=== PATIENT | female | born 1990 | race Caucasian/White ===

== ENCOUNTER 2020-07-28 09:59 | Emergency (ER) | payer MEDICAID, SELFPAY ==
[2020-07-28 10:10] VITALS: BP 104/67; PULSE 111; RESP 16; TEMP 36.7; O2SAT 98; BMI 24.7
[2020-07-28 10:21] LABS: Microscopic, Urine URINE MICROSCOPIC (MICROSCOPIC)
[2020-07-28 10:23] LABS: Appearance,Urine CLEAR (Clear); Bilirubin,Urine Negative (Negative); Blood, Urine Negative (Negative); Color,Urine YELLOW (Yellow); Glucose,Urine (UA) Negative (Negative); Ketones,Urine Negative (Negative); Leukocyte Esterase,Urine Negative (Negative); Nitrate,Urine Negative (Negative); PH,Urine 7.5 (5.0-8.5); Protein,Urine Negative (Negative); Specific Gravity, Urine 1.015 (1.005-1.030)
--- NOTE | 2020-07-28 10:25 | HMH.EDABDPAI ---
ED Disposition Clinical Impression: Abdominal pain during Qualifiers: Trimester: first trimester Qualified Code(s): O26.891 - Other specified related conditions, first trimester; R10.9 - Unspecified abdominal pain Disposition: Home, Self-Care Condition on Discharge: Good Instructions: DI for Abdominal Pain -- Early Referrals: Thomas Sosa APRN [Primary Care Provider] - - Critical Care Critical Care Time: No Attestation: On , the high probability of a clinically significant, sudden or life threatening deterioration of the following system(s) required my full and direct attention, intervention and personal management. The time I documented below is in addition to time spent performing reported procedures but includes the following listed in this critical care notation. Medical Decision Making - Medical Records Medical records reviewed: Yes: I reviewed the patient's medical records. - Gerard Inquiry Pt receiving controlled substance: No Vital Signs: 07/28/20 10:10 07/28/20 10:40 07/28/20 11:10 Temperature 98.1 F Temperature Source Oral Pulse Rate [Radial] 111 H 96 H 84 Respiratory Rate 16 Blood Pressure [Right Arm] 104/67 L 111/63 Blood Pressure Mean [Right Arm] 79 79 Blood Pressure Source [Right Arm] Automatic Cuff Blood Pressure Position [Right Arm] Sitting Sitting 02 Sat by Pulse Oximetry 98 100 100 Oxygen Delivery Method Room Air Room Air Room Air 07/28/20 11:57 07/28/20 12:54 Temperature Temperature Source Pulse Rate [Radial] 92 H 88 Respiratory Rate Blood Pressure [Right Arm] 108/75 L 111/61 Blood Pressure Mean [Right Arm] 86 77 Blood Pressure Source [Right Arm] Automatic Cuff Blood Pressure Position [Right Arm] Sitting 02 Sat by Pulse Oximetry 100 Oxygen Delivery Method Room Air - Lab Data Lab Results 07/28/20 10:01: Urine Color Yellow, Urine Appearance Clear, Urine pH 7.5, Ur Specific [place] 1.015, Urine Protein Negative, Urine Glucose (UA) Negative, Urine Ketones Negative, Urine Blood Negative, Urine Nitrate Negative, Urine Bilirubin Negative, Urine Urobilinogen 1.0, Ur Leukocyte Esterase Negative, Urine RBC Occasional, Urine WBC 3-5, Ur Squamous Epith Cells 3-5 07/28/20 10:10: WBC 9.8, RBC 4.78, Hgb 15.0, Hct 46.4, MCV 97.1, MCH 31.3 H, MCHC 32.3, RDW 12.8, Plt Count 346, MPV 7.5, Neut % (Auto) 76.8, Lymph % (Auto) 17.4, [place] % (Auto) 5.0, Eos % (Auto) 0.6, Baso % (Auto) 0.3, Neut # (Auto) 7.5, Lymph # (Auto) 1.7, [place] # (Auto) 0.5, Eos # (Auto) 0.1, Baso # (Auto) 0.0 07/28/20 10:10: Sodium 139, Potassium 3.2 L, Chloride 102, Carbon Dioxide 25, Anion Gap 15.2 H, BUN 8, Creatinine 0.50 L, Estimated Creat Clear 166, Estimated GFR 146, Est GFR ( Amer) 177, Glucose 69 L, Calcium 9.2, Total Bilirubin 0.9, AST 22, ALT 12, Alkaline Phosphatase 43, Total Protein 7.8, Albumin 4.6, Globulin 3.2, Albumin/Globulin Ratio 1.4, Amylase 61, Lipase 40, HCG, Quant [id number] H 07/28/20 10:52: Blood Type A Positive Result diagrams: 07/28/20 10:10 07/28/20 10:10 Orders (Tests/Meds): ED MEDICATIONS Discontinued Medications Generic Name Dose Route Start Last Admin Trade Name Baldemarq PRN Reason Stop Dose Admin Acetaminophen 500 mg 07/28/20 10:22 07/28/20 10:26 Acetaminophen 500mg Tab PO 07/28/20 10:23 500 mg ONCE ONE Administration Diphenhydramine HCl 25 mg 07/28/20 10:23 07/28/20 10:26 Diphenhydramine 50mg/Ml Vial IV 07/28/20 10:24 25 mg ONCE ONE Administration Sodium Chloride 1,000 mls @ 999 mls/hr 07/28/20 10:30 07/28/20 10:27 Sod Chlor 0.9% 1000ml Bag IV 07/28/20 11:30 999 mls/hr .Q1H1M HE Administration ORDERS Category Date Time Status US OB transvaginal Stat Ultrasound 07/28/20 11:56 Taken - Radiology Data #1 Image(s): Other (US OB <14wks) Image Reviewed: Yes I reviewed the patient's radiology results, Yes I have reviewed radiologist's interpretation IUP of 9wks - Reevaluation(s) T
[2020-07-28 10:31] LABS: Basophils % 0.3 % (0.1-2.0); Eosinophils # 0.1 K/mm3 (0.0-0.4); Eosinophils % 0.6 % (0.1-12.0); Hematocrit 46.4 % (37.0-47.0); Lymphocytes # 1.7 K/mm3 (0.7-4.5); Lymphocytes % 17.4 % (10-50); Mean Corpuscular HGB Conc 32.3 g/dL (31.8-35.4); Mean Corpuscular Hemoglobin 31.3 pg (27.0-31.2); Mean Corpuscular Volume 97.1 fl (81-99); Mean Platelet Volume 7.5 fl (7.4-10.4); Monocytes # 0.5 K/mm3 (0.1-1.0); Neutrophils # 7.5 K/mm3 (1.8-7.8); Neutrophils % 76.8 % (37.0-80.0); Platelet Count 346 K/mm3 (142-424); Red Blood Count 4.78 M/mm3 (4.20-5.40); Red Cell Distribution Width 12.8 % (11.5-17.5); White Blood Count 9.8 K/mm3 (4.8-10.8)
--- NOTE | 2020-07-28 10:39 | PC.NURSE ---
Lab at bedside v/s delayed.
[2020-07-28 10:40] VITALS: PULSE 96; O2SAT 100
[2020-07-28 10:41] LABS: Chloride 102 mmol/L (98-107); Potassium 3.2 mmoL/L (3.5-5.1); Sodium 139 mmol/L (136-145)
[2020-07-28 10:42] LABS: RBC,Urine Occasional #/hpf (0-3)
[2020-07-28 10:43] LABS: Alanine Aminotransferase 12 U/L (12-78); Amylase 61 U/L (30-110); Aspartate Amino Transferase 22 U/L (14-36); Bilirubin,Total 0.9 mg/dl (0.2-1.3); Blood Urea Nitrogen 8 mg/dl (7-17); Creatinine Clearance Estimated 166 mL/min (50-200); Estimated Glomerular Filt Rate 146 ml/min (>60); GFR (African American) 177 ML/MIN (>60)
[2020-07-28 10:44] LABS: Albumin Level 4.6 g/dl (3.5-5.0); Albumin/Globulin Ratio 1.4 (1.1-1.8); Alkaline Phosphatase 43 U/L (38-126); Anion Gap 15.2 mEq/L (5-15); Calcium 9.2 mg/dl (8.4-10.2); Carbon Dioxide 25 mmol/L (22.0-30.0); Globulin 3.2 g/dL (1.3-3.2); Glucose 69 mg/dl (74-100); Lipase 40 U/L (23-300); Total Protein,Serum 7.8 g/dl (6.3-8.2)
--- NOTE | 2020-07-28 11:09 | PC.NURSE ---
Called for update on beta qaunt and stated another 20 mins before there is a result
[2020-07-28 11:10] VITALS: BP 111/63; PULSE 84; O2SAT 100
--- NOTE | 2020-07-28 11:40 | PC.NURSE ---
Ordered meal tray for pt, pt updated on POC
--- NOTE | 2020-07-28 11:46 | PC.NURSE ---
Called lab again for update on beta qaunt, stated it was so high they had to run it again, notified
--- NOTE | 2020-07-28 11:56 | US_ITS ---
PROCEDURE: US OB TRANSVAGINAL CLINICAL INDICATION: pain, preg COMPARISON: No exams were available for comparison FINDINGS: An intrauterine gestational sac is present with a pole with a crown-rump length of 1.31cm correlating to gestational age of 7weeks 4days. heart tones are present with an FHR of 163bpm. Yolk sac is noted. IMPRESSION: Live IUP at 7 weeks 4 days. Estimated due date by Ultrasound is 03/12/2021 Dictated by: Mervin Menard MD 07/28/2020 14:13 Mervin Menard MD in OV 07/28/2020 14:13
[2020-07-28 11:57] VITALS: BP 108/75; PULSE 92
--- NOTE | 2020-07-28 12:03 | PC.NURSE ---
Notified rad of xray
--- NOTE | 2020-07-28 12:53 | PC.NURSE ---
Pt returned from rad.
[2020-07-28 12:54] VITALS: BP 111/61; PULSE 88; O2SAT 100
[2020-07-28 14:29] VITALS: BP 108/64; PULSE 91; RESP 16; TEMP 36.6; O2SAT 98
== END 2020-07-28 14:32 | disposition home or self-care (01) ==
PROVIDERS: Emergency Provider Emergency Medicine; PCP Nurse Practitioner
DX: O26.891 Other specified pregnancy related conditions, first trimester (principal); F17.210 Nicotine dependence, cigarettes, uncomplicated
CPT/HCPCS: 76817; 80053; 81001; 82150; 83690; 84702; 85025; 86900; 86901; 96365; 96375; 99284

== ENCOUNTER 2022-02-27 23:56 | Emergency (ER) | payer MEDICAID, SELFPAY ==
[2022-02-27 23:57] VITALS: BP 138/90; PULSE 89; RESP 16; TEMP 36.8; O2SAT 100; BMI 23.0
[2022-02-28 00:07] LABS: Microscopic, Urine URINE MICROSCOPIC (MICROSCOPIC)
[2022-02-28 00:16] LABS: Urine Pregnancy, HCG Qual. Positive (Negative)
--- NOTE | 2022-02-28 00:18 | HMH.EDPREG ---
ED Disposition Clinical Impression: Threatened Qualifiers: Weeks of gestation: less than 8 weeks Qualified Code(s): Z3A.01 - Less than 8 weeks gestation of Disposition: Home, Self-Care Condition on Discharge: Good Instructions: Threatened Miscarriage Additional Instructions: call pcp and merchant police this am for close follow up Referrals: Thomas Sosa APRN [Primary Care Provider] - - Critical Care Critical Care Time: No Attestation: On 02/27/22, the high probability of a clinically significant, sudden or life threatening deterioration of the following system(s) required my full and direct attention, intervention and personal management. The time I documented below is in addition to time spent performing reported procedures but includes the following listed in this critical care notation. Medical Decision Making - Medical Records Medical records reviewed: Yes: I reviewed the patient's medical records. - Gerard Inquiry Pt receiving controlled substance: No Vital Signs: 02/27/22 23:57 Temperature 98.3 F Temperature Source Oral Pulse Rate [Left Radial] 89 Respiratory Rate 16 Blood Pressure [Right Arm] 138/90 Blood Pressure Mean [Right Arm] 106 Blood Pressure Source [Right Arm] Automatic Cuff Blood Pressure Position [Right Arm] Sitting 02 Sat by Pulse Oximetry 100 Oxygen Delivery Method Room Air - Lab Data Lab results reviewed: Yes: I reviewed the patient's lab results. Lab Results 02/28/22 00:00: Urine Color Dk yellow, Urine Appearance Cloudy, Urine pH 6.5, Ur Specific [place] 1.025, Urine Protein 1+, Urine Glucose (UA) Negative, Urine Ketones Negative, Urine Blood 3+, Urine Nitrate Negative, Urine Bilirubin Negative, Urine Urobilinogen 1.0, Ur Leukocyte Esterase Trace, Urine RBC 20-50, Urine WBC 10-20, Ur Squamous Epith Cells 5-10, Urine Bacteria 1+ 02/28/22 00:00: Urine HCG, Qual Positive 02/28/22 00:25: WBC 7.7, RBC 3.93 L, Hgb 12.2, Hct 35.8 L, MCV 91.1, MCH 31.0, MCHC 34.0, RDW 13.9, Plt Count 375, MPV 8.0, Neut % (Auto) 59.5, Lymph % (Auto) 28.7, [place] % (Auto) 6.6, Eos % (Auto) 1.6, Baso % (Auto) 3.7 H, Neut # (Auto) 4.6, Lymph # (Auto) 2.2, [place] # (Auto) 0.5, Eos # (Auto) 0.1, Baso # (Auto) 0.3 H 02/28/22 00:25: Sodium 137, Potassium 3.3 L, Chloride 104, Carbon Dioxide 29, Anion Gap 7.3, BUN 11, Creatinine 0.70, Estimated Creat Clear 109, Estimated GFR 98, Est GFR ( Amer) 119, Glucose 100, Calcium 8.9, Total Bilirubin 0.4, AST 21, ALT 14, Alkaline Phosphatase 39, Total Protein 7.3, Albumin 4.4, Globulin 2.9, Albumin/Globulin Ratio 1.5, HCG, Quant 54 H Result diagrams: 02/28/22 00:25 02/28/22 00:25 Orders (Tests/Meds): ORDERS Category Date Time Status Urine Culture Stat Micro 02/28/22 00:00 Received US OB transvaginal Stat Ultrasound 02/28/22 00:19 Taken - US Data US Images: Pelvis ED US Reviewed: Yes: I have reviewed the patient's US results Findings Narrative: no def ectopic but no iup and discussed need for repeat beta Medical Decision Narrative: will need repeat beta as neg u/s for iup and discussed with pt - prob threated miscarriage HPI - General Chief complaint: Vaginal Bleeding Stated complaint: unknown weeks, bleeding Time Seen by Provider: 02/28/22 00:18 Mode of Arrival: Ambulatory Source of Information: Patient, Spouse, Medical Record Limitations: No Limitations Description of Symptoms (Recalled from ER Triage Doc. by RN): LMP 01/19/22 - WAS TOLD ON SATURDAY SHE WAS . STARTED HAVING BRIGHT RED VAGINAL BLEEDING TODAY. - History of Present Illness HPI Narrative: bleeding started today with known MD Complaint: vaginal bleeding Onset (ago): hour(s) Consistency: intermittent Severity: moderate : Yes Date of Last Menstrual Period: 01/19/22 - Related Data Blood Type: A (+) positive Home Medications Medication Instructions Recorded Confirmed Folic Acid 1 mg PO DAILY
[2022-02-28 00:19] LABS: Appearance,Urine CLOUDY (Clear); Bilirubin,Urine Negative (Negative); Blood, Urine 3+ (Negative); Color,Urine DK YELLOW (Yellow); Glucose,Urine (UA) Negative (Negative); Ketones,Urine Negative (Negative); Leukocyte Esterase,Urine TRACE (Negative); Nitrate,Urine Negative (Negative); PH,Urine 6.5 (5.0-8.5); Protein,Urine 1+ (Negative); Specific Gravity, Urine 1.025 (1.005-1.030)
--- NOTE | 2022-02-28 00:19 | US_ITS ---
PROCEDURE INFORMATION: Exam: US , Transvaginal Exam date and time: 02/28/2022 1:00 AM Age: 31 years old Clinical indication: Lmp or gestational age (in weeks): Lmp 01/19/2022; Other: Vaginal bleeding in early ; ; Patient HX: Beta only 54; Additional info: Vaginal bleeding in positive patient TECHNIQUE: Imaging protocol: Real-time transvaginal obstetrical ultrasound of the maternal pelvis with image documentation. Transvaginal imaging was used for better evaluation of the fetus, adnexa, and/or cervix. COMPARISON: US OB TRANSVAGINAL 07/28/2020 12:32 PM FINDINGS: Gestation: No intrauterine gestation is seen. MATERNAL: Uterus: Uterus measures 8.5 x 6.4 x 6.7 cm. Endometrial stripe measures up to 1 cm in thickness. Right ovary/adnexa: Right ovary measures 3.5 x 1.8 x 2.6 cm. A 0.8 x 0.6 x 0.9 cm complex cyst is seen within the right ovary. Normal flow within the right ovary. Left ovary/adnexa: Left ovary measures 2.4 x 1.7 x 1.8 cm. Normal flow seen within left ovary. Intraperitoneal space: Small to moderate amount of pelvic free fluid. IMPRESSION: 1. Findings compatible with of unknown location. Continued clinical and sonographic follow-up recommended. 2. Subcentimeter complex cyst within the right ovary has a nonspecific imaging appearance. Continued attention on follow-up. 3. Nonspecific small to moderate volume pelvic free fluid.
[2022-02-28 00:34] LABS: Bacteria,Urine 1+ /lpf; RBC,Urine 20-50 #/hpf (0-3)
[2022-02-28 00:34] LABS: Basophils # 0.3 K/mm3 (0-0.2); Basophils % 3.7 % (0.1-2.0); Eosinophils # 0.1 K/mm3 (0.0-0.4); Eosinophils % 1.6 % (0.1-12.0); Hematocrit 35.8 % (37.0-47.0); Hemoglobin 12.2 g/dL (12.2-16.2); Lymphocytes # 2.2 K/mm3 (0.7-4.5); Lymphocytes % 28.7 % (10-50); Mean Corpuscular Volume 91.1 fl (81-99); Monocytes # 0.5 K/mm3 (0.1-1.0); Monocytes % 6.6 % (1.7-9.3); Neutrophils # 4.6 K/mm3 (1.8-7.8); Neutrophils % 59.5 % (37.0-80.0); Platelet Count 375 K/mm3 (142-424); Red Blood Count 3.93 M/mm3 (4.20-5.40); Red Cell Distribution Width 13.9 % (11.5-17.5); White Blood Count 7.7 K/mm3 (4.8-10.8)
[2022-02-28 00:44] LABS: Chloride 104 mmol/L (98-107); Potassium 3.3 mmoL/L (3.5-5.1); Sodium 137 mmol/L (136-145)
[2022-02-28 00:47] LABS: Alanine Aminotransferase 14 U/L (12-78); Albumin Level 4.4 g/dl (3.5-5.0); Albumin/Globulin Ratio 1.5 (1.1-1.8); Alkaline Phosphatase 39 U/L (38-126); Anion Gap 7.3 mEq/L (5-15); Aspartate Amino Transferase 21 U/L (14-36); Bilirubin,Total 0.4 mg/dl (0.2-1.3); Blood Urea Nitrogen 11 mg/dl (7-17); Carbon Dioxide 29 mmol/L (22.0-30.0); Creatinine Clearance Estimated 109 mL/min (50-200); Estimated Glomerular Filt Rate 98 ml/min (>60); GFR (African American) 119 ML/MIN (>60); Globulin 2.9 g/dL (1.3-3.2); Total Protein,Serum 7.3 g/dl (6.3-8.2)
[2022-02-28 00:48] LABS: Calcium 8.9 mg/dl (8.4-10.2); Glucose 100 mg/dl (74-100)
[2022-02-28 01:05] LABS: HCG,Quantitative 54 mIU/ml (0-5.42)
[2022-02-28 01:36] VITALS: BP 131/84; PULSE 81; RESP 16; TEMP 36.8; O2SAT 100
== END 2022-02-28 01:39 | disposition home or self-care (01) ==
PROVIDERS: Emergency Provider Emergency Medicine; PCP Nurse Practitioner
DX: O20.0 Threatened abortion (principal)
CPT/HCPCS: 76817; 80053; 81001; 81025; 84702; 85025; 87086; 87088; 87186

== ENCOUNTER 2023-03-27 20:34 | Emergency (ER) | payer MEDICAID, SELFPAY ==
[2023-03-27 20:37] VITALS: BP 124/79; PULSE 82; RESP 17; TEMP 36.5; O2SAT 100; BMI 24.7
--- NOTE | 2023-03-27 20:45 | ECG_ITS ---
APPROVED REPORT Exam: Resting ECG HR:75 bpm ECG Measurements Heart Rate 75 AXES DC 152 P 63 QRSd 91 QRS 73 QT 378 T 58 QTc 406 Conclusion SINUS RHYTHM NORMAL ECG UNCONFIRMED REPORT Electronically signed by : Tom Aguilar MD 03/27/2023 21:44:37
[2023-03-27 20:49] VITALS: BMI 24.7
[2023-03-27 20:50] VITALS: BP 119/85; BP 124/79; BP 128/78; PULSE 82; PULSE 84; PULSE 94
--- NOTE | 2023-03-27 21:02 | US_ITS ---
PROCEDURE INFORMATION: Exam: US , Limited Exam date and time: 03/27/2023 9:36 PM Age: 33 years old Clinical indication: complicated by abdominal or pelvic pain; Lower; Second trimester (14 weeks 0 days to 27 weeks 6 days); Gestational age or lmp: 14w4d; ; Additional info: Abdominal pain-- syncopal episode TECHNIQUE: Imaging protocol: Real-time ultrasound of the maternal uterus with image documentation. Exam focused on the clinical indication. Real-time duplex ultrasound scan of the arterial flow of the ovaries with B-mode, color Doppler flow and spectral waveform analysis. COMPARISON: US TRANSVAGINAL 02/28/2022 1:00 AM FINDINGS: Gestation: Single live intrauterine gestation. heart rate: heart rate of 134 beats per minute. Placenta: No definite abruption. Amniotic fluid: Normal. BIOMETRY: Gestational age (AUA): Estimated gestational age of 14 weeks 6 days by measurements. Estimated due date (AUA): 09/19/2023 by ultrasound. MATERNAL: Cervix: Closed cervix, 2.8 cm in length. Right ovary: No mass. Normal flow. No adnexal mass. Left ovary: No mass. Normal flow. No adnexal mass. Intraperitoneal space: No significant free fluid. IMPRESSION: Single live intrauterine gestation.
--- NOTE | 2023-03-27 21:02 | XR_ITS ---
PROCEDURE INFORMATION: Exam: XR Chest Exam date and time: 03/27/2023 9:08 PM Age: 33 years old Clinical indication: Other: Syncope TECHNIQUE: Imaging protocol: Radiologic exam of the chest. Views: 1 view. COMPARISON: No relevant prior studies available. FINDINGS: Lungs: Unremarkable. No consolidation. Pleural spaces: Unremarkable. No pleural effusion. No pneumothorax. Heart/Mediastinum: Unremarkable. No cardiomegaly. Bones/joints: Unremarkable. IMPRESSION: No acute findings.
--- NOTE | 2023-03-27 21:03 | CT_ITS ---
PROCEDURE INFORMATION: Exam: CT Cervical Spine Without Contrast Exam date and time: 03/27/2023 9:22 PM Age: 33 years old Clinical indication: Other: Synopcal episode; Additional info: Trauma TECHNIQUE: Imaging protocol: Computed tomography of the cervical spine without contrast. Radiation optimization: All CT scans at this facility use at least one of these dose optimization techniques: automated exposure control; mA and/or kV adjustment per patient size (includes targeted exams where dose is matched to clinical indication); or iterative reconstruction. REPORTING DATA: Count of CT and Cardiac NM exams in prior 12 months: This patient has received 0 known CTs and 0 known cardiac nuclear medicine studies in the 12 months prior to the current study. COMPARISON: No relevant prior studies available. FINDINGS: Bones/joints: No acute fracture. Normal alignment. Straightening of cervical spine. Lungs: Unremarkable as visualized. Soft tissues: Unremarkable. IMPRESSION: No fracture.
--- NOTE | 2023-03-27 21:03 | CT_ITS ---
PROCEDURE INFORMATION: Exam: CT Head Without Contrast Exam date and time: 03/27/2023 9:22 PM Age: 33 years old Clinical indication: Syncope and collapse; Patient HX: Syncopal episode; Additional info: Shield abdomen TECHNIQUE: Imaging protocol: Computed tomography of the head without contrast. Radiation optimization: All CT scans at this facility use at least one of these dose optimization techniques: automated exposure control; mA and/or kV adjustment per patient size (includes targeted exams where dose is matched to clinical indication); or iterative reconstruction. REPORTING DATA: Count of CT and Cardiac NM exams in prior 12 months: This patient has received 0 known CTs and 0 known cardiac nuclear medicine studies in the 12 months prior to the current study. COMPARISON: No relevant prior studies available. FINDINGS: Brain: Minimal atrophy. No intracranial hemorrhage. No mass. No edema. Cerebral ventricles: No hydrocephalus. Paranasal sinuses: No acute sinusitis. Mastoid air cells: No significant effusion. Orbital cavities: Unremarkable as visualized. Bones/joints: No acute fracture. Soft tissues: Unremarkable. IMPRESSION: No intracranial hemorrhage.
[2023-03-27 21:07] LABS: Basophils % 0.2 % (0.1-2.0); Eosinophils # 0.1 K/mm3 (0.0-0.4); Eosinophils % 0.7 % (0.1-12.0); Hematocrit 34.3 % (37.0-47.0); Hemoglobin 11.9 g/dL (12.2-16.2); Lymphocytes % 22.4 % (10-50); Mean Corpuscular HGB Conc 34.6 g/dL (31.8-35.4); Mean Corpuscular Hemoglobin 30.3 pg (27.0-31.2); Mean Corpuscular Volume 87.6 fl (81-99); Mean Platelet Volume 7.8 fl (7.4-10.4); Monocytes # 0.5 K/mm3 (0.1-1.0); Neutrophils # 6.5 K/mm3 (1.8-7.8); Neutrophils % 71.6 % (37.0-80.0); Platelet Count 317 K/mm3 (142-424); Red Blood Count 3.91 M/mm3 (4.20-5.40); Red Cell Distribution Width 13.2 % (11.5-17.5); White Blood Count 9.1 K/mm3 (4.8-10.8)
[2023-03-27 21:08] LABS: Chloride 102 mmol/L (98-107); Sodium 136 mmol/L (136-145)
[2023-03-27 21:09] LABS: Potassium 3.4 mmoL/L (3.5-5.1)
[2023-03-27 21:11] LABS: Alanine Aminotransferase 14 U/L (12-78); Albumin Level 3.9 g/dl (3.5-5.0); Albumin/Globulin Ratio 1.3 (1.1-1.8); Alkaline Phosphatase 35 U/L (38-126); Anion Gap 11.4 mEq/L (5-15); Aspartate Amino Transferase 21 U/L (14-36); Bilirubin,Total 0.4 mg/dl (0.2-1.3); Blood Urea Nitrogen 6 mg/dl (7-17); Carbon Dioxide 26 mmol/L (22.0-30.0); Creatinine Clearance Estimated 162 mL/min (50-200); Estimated Glomerular Filt Rate 143 ml/min (>60); GFR (African American) 173 ML/MIN (>60); Total Protein,Serum 6.9 g/dl (6.3-8.2)
[2023-03-27 21:12] LABS: Calcium 8.3 mg/dl (8.4-10.2); Glucose 97 mg/dl (74-100)
--- NOTE | 2023-03-27 21:20 | PC.NURSE ---
Patient refused to have labs drawn for blood bank, stating, she just had all of those labs drawn at her OB's office and she's not getting them done again.
[2023-03-27 21:23] LABS: Microscopic, Urine URINE MICROSCOPIC (MICROSCOPIC)
--- NOTE | 2023-03-27 21:27 | PC.NURSE ---
Dr. Das notified that we have a previsous type & screen in [facility] system, A+. OK to cancel her order.
[2023-03-27 21:31] LABS: Appearance,Urine CLEAR (Clear); Bilirubin,Urine Negative (Negative); Blood, Urine Negative (Negative); Color,Urine YELLOW (Yellow); Glucose,Urine (UA) Negative (Negative); Ketones,Urine Negative (Negative); Leukocyte Esterase,Urine Negative (Negative); Nitrate,Urine Negative (Negative); Protein,Urine Negative (Negative); Urobilinogen,Urine 0.2 EU/dl (0.2)
[2023-03-27 21:43] LABS: Amorphous Sediment,Urine 1+ /lpf; Bacteria,Urine Trace /lpf
[2023-03-27 21:53] LABS: HCG,Quantitative 20519 mIU/ml (0-5.42)
[2023-03-27 22:54] VITALS: BP 120/72; PULSE 84; RESP 18; TEMP 36.6
[2023-03-27 23:02] VITALS: BP 109/60; PULSE 73; RESP 16; TEMP 36.8; O2SAT 100
--- NOTE | 2023-03-28 01:56 | HMH.EDSYNC ---
Discharge Plan Disposition Patient Disposition: Home, Self-Care Prescriptions Prescriptions: No Action pyridoxine (vitamin B6) [Vitamin B-6] 25 mg tablet 25 mg PO Q6HP PRN (Reason: Nausea) trazodone 100 mg tablet 100 mg PO HSP PRN (Reason: Insomnia) Sleep Aid (doxylamine) 25 mg tablet 25 mg PO Q6HP PRN (Reason: Nausea) ondansetron 4 mg tablet,disintegrating 4 mg PO Q6HP PRN (Reason: Nausea) WesTab Plus 27 mg iron- 1 mg tablet 1 tab PO DAILY Referrals Follow up/Referrals: Thomas Sosa APRN [Primary Care Provider] - See instructions Activity Restrictions/Add. Instructions Additional Instructions/Restrictions: He passed out when he stood up at work. You have no seizure activity. Your CAT scan of the head and cervical spine and your chest x-ray was negative blood work is stable. The ultrasound of the baby was normal. You cannot work until you are followed up with your [employer] and get medical clearance to go back to work. Follow-up with your OB as an outpatient. Clinical Impressions Clinical Impression: Syncope and collapse, Dehydration, Nausea and vomiting during , Intrauterine Instructions Patient Instructions: DI for Syncope in Adults (Fainting), DI for Syncope in Children (Fainting) Discharge ED Provider: Franca Das Syncope HPI General Chief Complaint: Syncope Stated Complaint: 15 weeks , passed out, nausea Time Seen by Provider: 03/27/23 20:54 Mode of Arrival: Wheelchair Source of Information: Patient Limitations: No Limitations Description of Symptoms (Recalled from ER Triage Doc. by RN): 33 F presents from home after having a syncopal earlier at work. She reports waking up and has felt blah all day today. She is a G8G3, 15 week gestation now followed by local OG/[employer]. History of Present Illness HPI narrative: Patient is a 33-year female who is here secondary to syncope. Patient is 15 weeks . Patient is 3 para 2 and this is her third . Patient stated that she was at work she got weak lightheaded and dizzy and called for her coworker who slowly protect her head but she did hit the rest of her body right-sided flank area rib area. Patient stated she passed out for a minute or 2. Patient stated that she has not having a lot of nausea vomiting with this . Her OB doctor is not at this facility. Patient stated that she has had regular care. Patient's had no urgency frequency and. Patient denied any chest pain, palpitation or headache or confusion no slurred speech before or after the syncopal. Coworker did not see any seizure activity. MD complaint: loss of consciousness, felt faint and collapsed Onset (ago): minute(s) Duration of episode: 1 Prodromal symptoms: lightheaded Witnessed: yes - by other Context: standing up Injuries sustained associated with event: neck, chest and abdomen Current symptoms: lightheaded and vertigo Treatments prior to arrival: none Related Data Home Medications Medication Instructions Recorded Confirmed doxylamine succinate 25 mg tablet 25 mg PO Q6HP PRN Nausea 03/27/23 03/27/23 (Sleep Aid (doxylamine)) ondansetron 4 mg disintegrating 4 mg PO Q6HP PRN Nausea 03/27/23 03/27/23 tablet vitamin with calcium 1 tab PO DAILY Supplement 03/27/23 03/27/23 no.72-iron 27 mg-folic acid 1 mg tablet (WesTab Plus) pyridoxine (vitamin B6) 25 mg 25 mg PO Q6HP PRN Nausea 03/27/23 03/27/23 tablet (Vitamin B-6) trazodone 100 mg tablet 100 mg PO HSP PRN Insomnia 03/27/23 03/27/23 Allergies Allergy/AdvReac Type Severity Reaction Status Date / Time amoxicillin Allergy Verified 07/28/20 10:14 cefoxitin Allergy Verified 07/28/20 10:15 Cephalosporins Allergy Verified 07/28/20 10:15 Penicillins Allergy Verified 07/28/20 10:15 PFSH PFS Disclaimer: The information contained in this section may have been updated after the patient was seen, as this info
== END 2023-03-27 23:05 | disposition home or self-care (01) ==
PROVIDERS: Emergency Provider Emergency Medicine; PCP Nurse Practitioner
DX: O26.892 Other specified pregnancy related conditions, second trimester (principal); O21.9 Vomiting of pregnancy, unspecified; E86.0 Dehydration; R55 Syncope and collapse; Z3A.15 15 weeks gestation of pregnancy; W18.39XA Other fall on same level, initial encounter
CPT/HCPCS: 70450; 71045; 72125; 76801; 80053; 81001; 84702; 85025; 85730; 93005; 93041; 96360; 99285